=== PATIENT | female | born 1960 | race Caucasian/White ===

== ENCOUNTER → 2018-08-29 | Outpatient (CLI) | payer MEDICARE ==
[~2018-08-29] MED LIST: ALB18R INH; CALC625T64 PO; DULO30CA35 PO; HYDR12.556 PO; LAMO100T5 PO; QUET25TA PO; TRAZ100T31 PO
[2018-08-29 11:45] LABS: PLATELET COUNT, AUTOMATED 361 K/uL (150-450)
[2018-08-29 12:18] LABS: LDL CHOLESTEROL 153 mg/dl
== END ==
LOC: LAB 11:27
PROVIDERS: ATTEND Internal Medicine
DX: I10 Essential (primary) hypertension (principal); M54.9 Dorsalgia, unspecified
CPT/HCPCS: 82040; 82247; 82310; 82374; 82435; 82465; 82565; 82947; 83718; 84075; 84132; 84155; 84295; 84443; 84450; 84460; 84478; 84520; 84550; 85025

== ENCOUNTER 2018-09-05 11:49 | Emergency (ER) | payer MEDICARE ==
--- NOTE | 2018-09-05 12:17 | ER Report ---
History and Physical Time Seen By MD: 12:17 Hx. of Stated Complaint: Pt. having cough for at least 6 months, and nasal congestion. She has tried everyting over the counter, nothing is helping. Dry cough with SOB. No fevers. HPI/ROS CHIEF COMPLAINT: Cough HISTORY OF PRESENT ILLNESS: 58-year-old female patient presents to emergency room with complaint of a cough. Patient states that she has had this cough for the past several months. She states she's not had any fevers or chills. She states she has been having significant amounts of sinus congestion over that time. She states that often times she is unable to breathe through her nose because the congestion. Patient has not had any nausea or vomiting. Patient states that often times when she coughs she will have urinary leakage. Patient states she's tried [id number]-[id number] cough and cold medication with no improvement. She has been taking a nasal spray that she purchased at the [employer] which helps considerably with the congestion. REVIEW OF SYSTEMS: Respiratory: As noted above Cardiovascular: No chest pain, no palpitations. Gastrointestinal: No vomiting, no abdominal pain. Musculoskeletal: No back pain. Allergies: Uncoded Allergies: sulfa (Allergy, Intermediate, face swelling, 09/05/18) Home Meds Active Scripts Amoxicillin/Pot Clav 875-125 Mg Tab (AUGMENTIN 875-125 TABLET) 1 Each Tablet, 1 TAB PO Q12H, #28 TAB Prov:CHECO TAYLOR SHIRT BANDER 09/05/18 Reported Medications Albuterol Sulfate (VENTOLIN HFA) 18 Gm Inh, 2 PUFF INH Q4-6H PRN for SHORTNESS OF BREATH, INH 08/17/18 Calcium Polycarbophil (FIBER LAX) 625 Mg Tablet, 2 TAB PO QDAY 08/17/18 Trazodone Hcl (TRAZODONE HCL) 100 Mg Tablet, 200 MG PO QHS, TAB 08/17/18 Hydrochlorothiazide (HYDROCHLOROTHIAZIDE) 12.5 Mg Capsule, 1 TAB PO QDAY, CAPSULE 08/17/18 Quetiapine Fumarate (QUETIAPINE FUMARATE) 25 Mg Tablet, 25 MG PO BID 08/17/18 Lamotrigine (LAMOTRIGINE) 100 Mg Tab.er.24, 100 MG PO QDAY 08/17/18 Duloxetine Hcl (CYMBALTA) 30 Mg Capsule.dr, 30 MG PO QDAY, CAP 08/17/18 Past Medical/Surgical History Patient has a past medical history of hypertension, urinary leakage, back pain, occasional alcohol use, bipolar. Patient has surgical history of tubal ligation, tonsillectomy. Reviewed Nurses Notes: Yes Hx Smoking: Yes Smoking Status: Current: Every Day Smoker Exposure to Second Hand Smoke?: Yes Hx Substance Use Disorder: Yes Hx Alcohol Use: Yes (occasional) Constitutional Vital Sign - Last 24 Hours 09/05/18 09/05/18 09/05/18 09/05/18 12:00 12:04 12:09 12:39 Temp 97.7 Pulse 94 92 ??? Resp 16 B/P (MAP) 152/85 152/85 (107) Pulse Ox 96 93 O2 Delivery Room Air 09/05/18 09/05/18 13:00 13:09 Pulse ??? B/P (MAP) ???/??? (1665) Physical Exam General Appearance: The patient is alert, has no immediate need for airway protection and no current signs of toxicity. ENT: Tympanic membranes are pearly-garcia, auditory canals are patent, mucous membranes are moist. Patient does have swelling to bilateral nares. Respiratory: Chest is non tender, lungs are clear to auscultation. Cardiac: regular rate and rhythm Gastrointestinal: Abdomen is soft and non tender, no masses, bowel sounds normal. Musculoskeletal: Neck: Neck is supple and non tender. Extremities have full range of motion and are non tender. Skin: No rashes or lesions. DIFFERENTIAL DIAGNOSIS: After history and physical exam differential diagnosis was considered for bronchitis, pneumonia, sinusitis, upper respiratory infection. Medical Decision Making EKG/Imaging Imaging 2 VIEWS CHEST INDICATION: And congestion. History smoking. COMPARISON: None available FINDINGS: Cardiomediastinal silhouette and pulmonary vessels within normal limits. There is no focal infiltrate or lobar consolidation. There is no pneumothorax or pleural effusion. There is a ill-defined nodular opacity seen along the medial right apex. Upper abdomen is unremarkable. No acute bony abnormality. IMPRESSION: 1. No acute cardiopulmonary process. 2. Nodular opacity along the medial right apex. This is fairly dense and could represent overlapping bony structures, but indeterminate. Suggest a follow-up apical lordotic view the chest to evaluate whether there is underlying pa renchymal abnormality. Report Dictated By: Catrachito Carbone at 09/05/2018 1:02 PM Report E-Signed By: Catrachito Carbone at 09/05/2018 1:04 PM ED Course/Re-evaluation ED Course Patient was admitted to an exam room, history and physical were obtained. Differential diagnoses were considered. On examination lungs are clear, heart is regular, abdomen soft nontender. I did look at the mucous membranes of the nose she has significant swelling, especially to the left. Looking at the posterior pharynx she did have some cobblestoning. A chest x-ray was done. Chest x-ray showed no acute cardiopulmonary processes. There was mention of a radiodense lesion in the medial aspect of the apex of the right lung. I discussed the findings with the patient and her . I discussed that it wouldn't be a bad idea to go ahead and get a CT scan of the chest done have a better look at it. Patient refused at this time stating she would prefer to go ahead and follow-up with her primary care provider, who she has an appointment with on Tuesday. She states she is very tired and would prefer just to go home at this time. We'll go ahead and discharge patient home at this time. With the swelling to the mucous membranes of believe that she has a sinus infection. We'll go ahead and treat her with a two-week course of Augmentin. Patient is to stop taking the Afrin nasal spray which she has been taking. She may use an emdk-naa-tygkmay decongestant such as Sudafed in the meantime. Patient verbalized understanding and agreement with plan. Decision to Disposition Date: Sep 05, 2018 Decision to Disposition Time: 13:22 Depart Departure Latest Vital Signs Vital Signs Date Time Temp Pulse Resp B/P (MAP) Pulse Ox O2 Delivery O2 Flow Rate FiO2 09/05/18 13:09 ??? 09/05/18 13:00 ???/??? (1665) 09/05/18 12:09 93 09/05/18 12:00 97.7 16 Room Air Impression: Primary Impression: Cough Additional Impression: Sinusitis Condition: Improved Disposition: HOME OR SELF-CARE Referrals: MARIA ELENA LEWIS MD (PCP) New Scripts Amoxicillin/Pot Clav 875-125 Mg Tab (AUGMENTIN 875-125 TABLET) 1 Each Tablet 1 TAB PO Q12H, #28 TAB Prov: CHECO TAYLOR 09/05/18 Patient Instructions: Sinusitis (ED) Additional Instructions: Increase fluid intake. Get plenty of rest. Return to the ER if condition worsens. Take the medication as prescribed. Stop taking the Nasal spray. You may take Over the counter sudafed to help with congestion. Follow up with Dr. Sheridan on Tuesday as scheduled. Problem Qualifiers Additional Impression: Sinusitis Sinusitis location: maxillary Chronicity: chronic Qualified Codes: J32.0 - Chronic maxillary sinusitis CHECO TAYLOR Sep 05, 2018 12:17
--- NOTE | 2018-09-05 13:09 | RADIOLOGY IMAGING REPORT ---
FACILITY: [facility] [place] PATIENT NAME: Sweta Green : 1960 MR: [id number] V: [id number] EXAM DATE: ORDERING PHYSICIAN: CHECO TAYLOR TECHNOLOGIST: Location: [facility] Patient: Sweta Green : 1960 Visit/Account:[id number] Date of Sevice: 09/05/2018 2 VIEWS CHEST INDICATION: And congestion. History smoking. COMPARISON: None available FINDINGS: Cardiomediastinal silhouette and pulmonary vessels within normal limits. There is no focal infiltrate or lobar consolidation. There is no pneumothorax or pleural effusion. There is a ill-defined nodular opacity seen along the medial right apex. Upper abdomen is unremarkable. No acute bony abnormality. IMPRESSION: 1. No acute cardiopulmonary process. 2. Nodular opacity along the medial right apex. This is fairly dense and could represent overlapping bony structures, but indeterminate. Suggest a follow-up apical lordotic view the chest to evaluate wh ether there is underlying parenchymal abnormality. Report Dictated By: Catrachito Carbone at 09/05/2018 1:02 PM Report E-Signed By: Catrachito Carbone at 09/05/2018 1:04 PM WSN:[id number]
[2018-09-05] MEDS ORDERED: AMOX-559 PO (13:24)
== END 2018-09-05 13:33 | disposition home or self-care (01) ==
LOC: ER 12:07
DX: J32.0 Chronic maxillary sinusitis (principal)
CPT/HCPCS: 71046; 99283

== ENCOUNTER → 2018-09-15 | Outpatient (CLI) | payer MEDICARE ==
[~2018-09-15] MED LIST changes: +AMOX-559 PO; +ATOR20TA65 PO
--- NOTE | 2018-09-15 12:18 | RADIOLOGY IMAGING REPORT ---
FACILITY: [facility] PATIENT NAME: Sweta Green : 1960 MR: [id number] V: [id number] EXAM DATE: ORDERING PHYSICIAN: MARIA ELENA LEWIS TECHNOLOGIST: Location: [facility] [place] Patient: Sweta Green : 1960 Visit/Account:[id number] Date of Sevice: 09/15/2018 Chest with lateral, two views. HISTORY: Chest x-ray abnormality. COMPARISON: 09/05/2018. A vague nodular density projects on the medial aspect of the right lung apex, unchanged. The heart a nd mediastinum are unremarkable. Pulmonary vessels are unremarkable. The lungs are otherwise clear. The pleural surfaces are otherwise unremarkable. No pneumothorax. No acute bony abnormalities. IMPRESSION: Persistent right upper chest opacity. A lung nodule, or focal bony hypertrophy, are possible. A jared CT scan might be considered for further evaluation. Otherwise no evidence of acute cardiopulmonary disease. Report Dictated By: Patrick Frost MD at 09/15/2018 12:11 PM Report E-Signed By: Patrick Frost MD at 09/15/2018 12:14 PM WSN:[email or web address]
== END ==
LOC: RAD 11:30
PROVIDERS: ATTEND Internal Medicine
DX: R93.89 Abnormal findings on diagnostic imaging of other specified body structures (principal)
CPT/HCPCS: 71047

== ENCOUNTER → 2018-09-21 | Outpatient (CLI) | payer MEDICARE ==
[~2018-09-21] MED LIST changes: +IOPAMIDOL 61% 75 ML INFUS BTL 75 ML ONE
== END ==
LOC: CT 14:30
PROVIDERS: ATTEND Internal Medicine
DX: R93.89 Abnormal findings on diagnostic imaging of other specified body structures (principal); R06.00 Dyspnea, unspecified; R06.89 Other abnormalities of breathing
CPT/HCPCS: Q9967

== ENCOUNTER → 2018-10-19 | Outpatient (CLI) | payer MEDICARE ==
[~2018-10-19] MED LIST changes: +ALBU8.5H IH; +FLUT16SP19 NS; -IOPAMIDOL 61% 75 ML INFUS BTL 75 ML ONE; +PRED20TA6 PO
== END ==
LOC: RESP 07:13
PROVIDERS: ATTEND Internal Medicine
DX: R06.00 Dyspnea, unspecified (principal); I10 Essential (primary) hypertension; Z72.0 Tobacco use
CPT/HCPCS: 94060; 94726; 94729

== ENCOUNTER 2018-10-23 10:20 | Emergency (ER) | payer MEDICARE ==
[~2018-10-23 10:20] MED LIST changes: -ALBU8.5H IH
--- NOTE | 2018-10-23 10:38 | ER Report ---
History and Physical Time Seen By MD: 10:38 Hx. of Stated Complaint: pt reports R sided chest pain since tuesday after pulm function test. denies sob, dizziness or other s/s HPI/ROS CHIEF COMPLAINT: Chest pain HISTORY OF PRESENT ILLNESS: Patient is a 58-year-old female who was being followed by Dr. Fox for some chest discomfort and cough for the past few weeks. She recently had pulmonary function test done on Tuesday and since then has had increasing chest pain or pressure. She denies any exertional component. She is a pack-a-day smoker for the past 40+ years. She denies any fevers or chills she denies any flulike symptoms. She denies any abdominal pain she denies nausea vomiting or diarrhea. REVIEW OF SYSTEMS: Constitutional: No fever, no chills. Eyes: No discharge. ENT: No sore throat. Cardiovascular: Chest pain Respiratory: Dry cough Gastrointestinal: No abdominal pain, no vomiting. Genitourinary: No hematuria. Musculoskeletal: No back pain. Skin: No rashes. Neurological: No headache. Allergies: Uncoded Allergies: sulfa (Allergy, Intermediate, face swelling, 09/05/18) Home Meds Active Scripts Prednisone (PREDNISONE) 20 Mg Tablet, 60 MG PO QDAY, #15 TAB 0 Refills Prov:JEROME CASTILLO MD 10/23/18 Albuterol Sulfate 90 Mcg/Act (PROAIR HFA 90 MCG/ACT) 8.5 Gm Hfa.aer.ad, 1-2 PUFF IH 3-4XD for cough, #1 INHALER 1 Refill Prov:JEROME CASTILLO MD 10/23/18 Fluticasone Prop 50 Mcg Ns (FLONASE 50 MCG NS) 16 Gm [place].susp, 2 SPRAYS NS QDAY, #1 BOT 2 Refills Prov:MARIA ELENA FOX MD 10/10/18 Prednisone (PREDNISONE) 20 Mg Tablet, 20 MG PO BID, #14 TAB Prov:MARIA ELENA FOX MD 10/10/18 Atorvastatin Calcium (ATORVASTATIN CALCIUM) 20 Mg Tablet, 1 TAB PO QDAY, #30 TAB 3 Refills Prov:MARIA ELENA FOX MD 09/15/18 Reported Medications Albuterol Sulfate (VENTOLIN HFA) 18 Gm Inh, 2 PUFF INH Q4-6H PRN for SHORTNESS OF BREATH, INH 08/17/18 Calcium Polycarbophil (FIBER LAX) 625 Mg Tablet, 2 TAB PO QDAY 08/17/18 Trazodone Hcl (TRAZODONE HCL) 100 Mg Tablet, 200 MG PO QHS, TAB 08/17/18 Hydrochlorothiazide (HYDROCHLOROTHIAZIDE) 12.5 Mg Capsule, 1 TAB PO QDAY, CAPSULE 08/17/18 Quetiapine Fumarate (QUETIAPINE FUMARATE) 25 Mg Tablet, 25 MG PO BID 08/17/18 Lamotrigine (LAMOTRIGINE) 100 Mg Tab.er.24, 100 MG PO QDAY 08/17/18 Duloxetine Hcl (CYMBALTA) 30 Mg Capsule.dr, 30 MG PO QDAY, CAP 08/17/18 Past Medical/Surgical History Past medical history for smoking, reactive airways disease. Hx Smoking: Yes Smoking Status: Current: Every Day Smoker Exposure to Second Hand Smoke?: Yes Hx Substance Use Disorder: Yes Hx Alcohol Use: Yes (occasional) Constitutional Vital Sign - Last 24 Hours 10/23/18 10/23/18 10/23/18 10:20 11:27 11:27 Temp 97.4 Pulse 86 75 Resp 18 18 B/P (MAP) 169/94 Pulse Ox 91 92 O2 Delivery Room Air Room Air Physical Exam General/Constitutional: Patient is awake, alert, nontoxic and in no acute respiratory distress. Head: Normocephalic and atraumatic. Ears:External canals are clear. Tympanic membranes are clear with normal landmarks and light reflex. Nares: No rhinorrhea or bleeding. Turbinates are pink and moist. Oropharyngeal: Mucous membranes are moist. There is no pharyngeal erythema or exudate. There are no palatal petechiae. Uvula is midline and symmetrical. Neck: Supple, no adenopathy. Cardiovascular: Heart is regular rate and rhythm without audible murmurs, rubs or gallops. Pulmonary: Lungs are noted for wheezing with cough. Abdomen: Soft, nontender, no guarding or peritoneal signs. Extremities: No gross deformities, No peripheral cyanosis. Able to move all 4 extremities. Neuro: Alert and oriented X3, Skin: No rashes, skin is warm dry and well perfused. Medical Decision Making Data Points Result Diagram: 10/23/18 1027 10/23/18 1027 Laboratory Hematology Test 10/23/18 10:27 Red Blood Count 4.44 M/uL (4.17-5.56) Mean Corpuscular Volume 103.6 fL (80.0-96.0) Mean Corpuscular Hemoglobin 35.5 pg (26.0-33.0) Mean Corpuscular Hemoglobin Concent 34.3 g/dL (32.0-36.0) Red Cell Distribution Width 13.6 % (11.5-14.5) Mean Platelet Volume 8.0 fL (7.2-11.1) Neutrophils (%) (Auto) 75.3 % (39.4-72.5) Lymphocytes (%) (Auto) 16.1 % (17.6-49.6) Monocytes (%) (Auto) 7.0 % (4.1-12.4) Eosinophils (%) (Auto) 0.9 % (0.4-6.7) Basophils (%) (Auto) 0.7 % (0.3-1.4) Nucleated RBC Relative Count (auto) 0.0 /100WBC Neutrophils # (Auto) 8.2 K/uL (2.0-7.4) Lymphocytes # (Auto) 1.8 K/uL (1.3-3.6) Monocytes # (Auto) 0.8 K/uL (0.3-1.0) Eosinophils # (Auto) 0.1 K/uL (0.0-0.5) Basophils # (Auto) 0.1 K/uL (0.0-0.1) Nucleated RBC Absolute Count (auto) 0.00 K/uL Prothrombin Time 12.7 seconds (12.0-14.4) Prothromb Time International Ratio 0.95 Activated Partial Thromboplast Time 30 seconds (23-35) Sodium Level 142 mmol/L (137-145) Potassium Level 3.4 mmol/L (3.5-5.0) Chloride Level 110 mmol/L (98-107) Carbon Dioxide Level 24 mmol/L (22-31) Blood Urea Nitrogen 11 mg/dl (7-18) Creatinine 0.50 mg/dl (0.52-1.04) Glomerular Filtration Rate Calc > 60.0 Random Glucose 119 mg/dl (75-110) Calcium Level 8.7 mg/dl (8.4-10.2) Total Bilirubin 0.3 mg/dl (0.2-1.3) Aspartate Amino Transf (AST/SGOT) 37 U/L (0-35) Alanine Aminotransferase (ALT/SGPT) 40 U/L (0-56) Alkaline Phosphatase 88 U/L (0-126) Troponin I < 0.012 ng/ml B-Type Natriuretic Peptide 15 pg/ml (0-100) Total Protein 6.2 g/dl (6.3-8.2) Albumin 3.8 g/dl (3.5-5.0) Chemistry Test 10/23/18 10:27 White Blood Count 10.9 k/uL (4.5-11.0) Red Blood Count 4.44 M/uL (4.17-5.56) Hemoglobin 15.8 g/dL (12.0-16.0) Hematocrit 46.0 % (34.0-47.0) Mean Corpuscular Volume 103.6 fL (80.0-96.0) Mean Corpuscular Hemoglobin 35.5 pg (26.0-33.0) Mean Corpuscular Hemoglobin Concent 34.3 g/dL (32.0-36.0) Red Cell Distribution Width 13.6 % (11.5-14.5) Platelet Count 300 K/uL (150-450) Mean Platelet Volume 8.0 fL (7.2-11.1) Neutrophils (%) (Auto) 75.3 % (39.4-72.5) Lymphocytes (%) (Auto) 16.1 % (17.6-49.6) Monocytes (%) (Auto) 7.0 % (4.1-12.4) Eosinophils (%) (Auto) 0.9 % (0.4-6.7) Basophils (%) (Auto) 0.7 % (0.3-1.4) Nucleated RBC Relative Count (auto) 0.0 /100WBC Neutrophils # (Auto) 8.2 K/uL (2.0-7.4) Lymphocytes # (Auto) 1.8 K/uL (1.3-3.6) Monocytes # (Auto) 0.8 K/uL (0.3-1.0) Eosinophils # (Auto) 0.1 K/uL (0.0-0.5) Basophils # (Auto) 0.1 K/uL (0.0-0.1) Nucleated RBC Absolute Count (auto) 0.00 K/uL Prothrombin Time 12.7 seconds (12.0-14.4) Prothromb Time International Ratio 0.95 Activated Partial Thromboplast Time 30 seconds (23-35) Glomerular Filtration Rate Calc > 60.0 Calcium Level 8.7 mg/dl (8.4-10.2) Total Bilirubin 0.3 mg/dl (0.2-1.3) Aspartate Amino Transf (AST/SGOT) 37 U/L (0-35) Alanine Aminotransferase (ALT/SGPT) 40 U/L (0-56) Alkaline Phosphatase 88 U/L (0-126) Troponin I < 0.012 ng/ml B-Type Natriuretic Peptide 15 pg/ml (0-100) Total Protein 6.2 g/dl (6.3-8.2) Albumin 3.8 g/dl (3.5-5.0) Coagulation Test 10/23/18 10:27 Prothrombin Time 12.7 seconds Prothromb Time International Ratio 0.95 Activated Partial Thromboplast Time 30 seconds EKG/Imaging EKG Interpretation EKG shows normal sinus rhythm with low voltage septal infarct age indeterminate. Monitor Interpretation: Normal Sinus Rhythm Imaging FACILITY: [facility] PATIENT NAME: Sweta Green : 1960 MR: [id number] V: [id number] EXAM DATE: ORDERING PHYSICIAN: JEROME CASTILLO TECHNOLOGIST: Location: [facility] Patient: Sweta Green : 1960 Visit/Account:[id number] Date of Sevice: 10/23/2018 2 VIEWS CHEST INDICATION: Chest pain. COMPARISON: September 15, 2018 FINDINGS: Platelike atelectasis is seen in the left midlung. No effusion or pneumothorax is seen. Heart size and mediastinal contours are normal. Mild degenerative changes involve the midthoracic spine. On the frontal view, oval-shaped opacity overlies the left axilla. This is likely projectional. No abnormality was seen in the axilla on the recent CT scan. IMPRESSION: 1. No radiographic evidence of active disease. 2. Platelike atelectasis in the left midlung. Report Dictated By: Pro Eaton at 10/23/2018 12:08 PM Report E-Signed By: Pro Eaton at 10/23/2018 12:13 PM WSN:[email or web address] ED Course/Re-evaluation ED Course Patient was improvement after DuoNeb. Plan at this time will be to place the patient on an inhaler as well as oral steroids have her follow up Dr. Fox next Tuesday. Decision to Disposition Date: Oct 23, 2018 Decision to Disposition Time: 12:27 Depart Departure Latest Vital Signs Vital Signs Date Time Temp Pulse Resp B/P (MAP) Pulse Ox O2 Delivery O2 Flow Rate FiO2 10/23/18 11:27 92 Room Air 10/23/18 11:27 75 18 10/23/18 10:20 97.4 169/94 Impression: Primary Impression: Bronchospasm Condition: Improved Disposition: HOME OR SELF-CARE Referrals: MARIA ELENA FOX MD (PCP) New Scripts Prednisone (PREDNISONE) 20 Mg Tablet 60 MG PO QDAY, #15 TAB 0 Refills Prov: JEROME CASTILLO MD 10/23/18 Albuterol Sulfate 90 Mcg/Act (PROAIR HFA 90 MCG/ACT) 8.5 Gm Hfa.aer.ad 1-2 PUFF IH 3-4XD for cough, #1 INHALER 1 Refill Prov: JEROME CASTILLO MD 10/23/18 Patient Instructions: Bronchospasm (ED) JEROME CASTILLO MD Oct 23, 2018 10:38
[2018-10-23] MEDS ORDERED: ASPIRIN 81 MG CHEW PO ONE (11:15)
[2018-10-23] MEDS ORDERED: ALBUTEROL/IPRATROPIUM 3 ML NEB NEB ONE (11:15)
[2018-10-23 11:20] LABS: PLATELET COUNT, AUTOMATED 300 K/uL (150-450)
[2018-10-23 11:29] LABS: INR 0.95
--- NOTE | 2018-10-23 12:18 | RADIOLOGY IMAGING REPORT ---
FACILITY: [facility] [place] PATIENT NAME: Sweta Green : 1960 MR: [id number] V: [id number] EXAM DATE: ORDERING PHYSICIAN: JEROME CASTILLO TECHNOLOGIST: Location: [facility] Patient: Sweta Green : 1960 Visit/Account:[id number] Date of Sevice: 10/23/2018 2 VIEWS CHEST INDICATION: Chest pain. COMPARISON: September 15, 2018 FINDINGS: Platelike atelectasis is seen in the left midlung. No effusion or pneumothorax is seen. Heart size a nd mediastinal contours are normal. Mild degenerative changes involve the midthoracic spine. On the frontal view, oval-shaped opacity overlies the left axilla. This is likely projectional. No abnorm ality was seen in the axilla on the recent CT scan. IMPRESSION: 1. No radiographic evidence of active disease. 2. Platelike atelectasis in the left midlung. Report Dictated By: Pro Eaton at 10/23/2018 12:08 PM Report E-Signed By: Pro Eaton at 10/23/2018 12:13 PM WSN:[email or web address]
--- NOTE | 2018-10-23 12:24 | EKG ---
FACILITY: [facility] PATIENT NAME: BRIAN ARAUJO : [id number] MR: [id number] V: [id number] EXAM DATE: ORDERING PHYSICIAN: JEROME CASTILLO TECHNOLOGIST: ANAI Silvestre Reason : CP Blood Pressure : / mmHG Vent. Rate : 085 BPM Atrial Rate : 085 BPM P-R Int : 174 ms QRS Dur : 082 ms QT Int : 396 ms P-R-T Axes : 052 -18 045 degrees QTc Int : 471 ms Normal sinus rhythm Low voltage QRS Septal infarct , age undetermined Abnormal ECG No previous ECGs available Confirmed by CARTER PHILLIPS ([id number]) on 10/23/2018 7:23:14 PM Referred By: JONATHAN Confirmed By:CARTER PHILLIPS
[2018-10-23] MEDS ORDERED: ALBU8.5H IH (12:29)
[2018-10-23] MEDS ORDERED: PRED20TA6 PO (12:29)
[2018-10-23] MEDS ORDERED: ALBUTEROL 8 GM INHALER INH ONE (12:30)
[2018-10-23 12:51] VITALS: BP 155/82
[2018-10-24] MEDS ORDERED: ALB18R INH (14:13)
[2018-10-25] MEDS ORDERED: LISI-351 PO (10:55)
[2018-10-25] MEDS ORDERED: FLUT1DIS27 IH (10:55)
[2018-10-25] MEDS ORDERED: VARE1TAB3 PO (10:55)
[2018-10-25] MEDS ORDERED: VAR05PT PO (10:55)
== END 2018-10-23 12:50 | disposition home or self-care (01) ==
LOC: ER 10:43
DX: J98.01 Acute bronchospasm (principal)
CPT/HCPCS: 71046; 83880; 84484; 85025; 85610; 85730; 93005; 94640; 99284; A9270; J7620; 82040; 82247; 82310; 82374; 82435; 82565; 82947; 84075; 84132; 84155; 84295; 84450; 84460; 84520

== ENCOUNTER 2018-12-17 12:15 | Emergency (ER) | payer MEDICARE ==
[~2018-12-17 12:15] MED LIST changes: +ALBU8.5H IH; +FLUT1DIS27 IH; +LISI-351 PO; +VAR05PT PO; +VARE1TAB3 PO
--- NOTE | 2018-12-17 12:20 | ER Report ---
History and Physical Time Seen By MD: 12:20 HPI/ROS CHIEF COMPLAINT: Right-sided chest pain HISTORY OF PRESENT ILLNESS: Patient is a 58-year-old female who is a moderate to heavy smoker who presents to emergency department complaining of pleuritic right-sided chest pain. This is been a recurring problem for the patient. She wa s seen by myself back in September with similar symptoms had a negative cardiac workup at that time and was diagnosed with pleurisy and bronchospasm. Patient has sepsis with a follow-up and then pulmonary function testing which revealed a mild component of COPD. She states the chest pain has been present for the past 4-5 days and feels like someone is pushing on the right side of her chest near the apex. She also notes over the past few months a droopy right eyelid. States that he just feels as if the "muscle doesn't want to work". She denies any headache she denies neck pain. She denies any abdominal pain or nausea vomiting or diarrhea. She denies fevers or chills. REVIEW OF SYSTEMS: Constitutional: No fever, no chills. Eyes: No discharge. Right-sided eyelid drop ENT: No sore throat. Cardiovascular: Right-sided chest pain Respiratory: No cough, no shortness of breath. Gastrointestinal: No abdominal pain, no vomiting. Genitourinary: No hematuria. Musculoskeletal: No back pain. Skin: No rashes. Neurological: No headache. Allergies: Uncoded Allergies: sulfa (Allergy, Intermediate, face swelling, 09/05/18) Home Meds Active Scripts Potassium Chloride (KLOR-CON 10) 10 Meq Tablet.er, 10 MEQ PO QODAY, #30 TAB 3 Refills Prov:MARIA ELENA LEWIS MD 12/21/18 Fluticasone/Vilanterol (Breo Ellipta 200-25 Mcg INH) 1 Each Blst.w.dev, 1 PUFF INH QDAY, #1 INHALER 3 Refills Prov:MARIA ELENA LEWIS MD 12/21/18 Albuterol Sulfate 0.083% (ALBUTEROL SULFATE 0.083%) 2.5 Mg/3 Ml Vial.neb, 2.5 MG INH Q6H for cough, #1 BOX 1 Refill Prov:JEROME CASTILLO MD 12/17/18 Lisinopril/Hydrochlorothiazide (LISINOPRIL-HCTZ 10-12.5 MG TAB) 1 Each Tablet, 1 EACH PO QDAY, #30 TAB 3 Refills Prov:MARIA ELENA LEWIS MD 10/25/18 Albuterol Sulfate (VENTOLIN HFA) 18 Gm Inh, 2 PUFF INH Q4-6H PRN for SHORTNESS OF BREATH for 90 Days, #1 INH 4 Refills Prov:MARIA ELENA LEWIS MD 10/24/18 Fluticasone Prop 50 Mcg Ns (FLONASE 50 MCG NS) 16 Gm [place].susp, 2 SPRAYS NS QDAY, #1 BOT 2 Refills Prov:MARIA ELENA LEWIS MD 10/10/18 Atorvastatin Calcium (ATORVASTATIN CALCIUM) 20 Mg Tablet, 1 TAB PO QDAY, #30 TAB 3 Refills Prov:MARIA ELENA LEWIS MD 09/15/18 Reported Medications Calcium Polycarbophil (FIBER LAX) 625 Mg Tablet, 2 TAB PO QDAY 08/17/18 Trazodone Hcl (TRAZODONE HCL) 100 Mg Tablet, 200 MG PO QHS, TAB 08/17/18 Discontinued Scripts Fluticasone/Salmeterol (ADVAIR 100-50 DISKUS) 1 Each Disk.w.dev, 1 EACH IH BID, #1 INH 3 Refills Prov:MARIA ELENA LEWIS MD 10/25/18 Prednisone (PREDNISONE) 20 Mg Tablet, 60 MG PO QDAY, #15 TAB 0 Refills Prov:JEROME CASTILLO MD 10/23/18 Varenicline Tartrate (CHANTIX) 1 Each Tab.ds.pk, 1 EACH PO QDAY, #60 TAB 3 Refills Prov:MARIA ELENA LEWIS MD 10/25/18 Varenicline Tartrate (CHANTIX) 0.5 Mg Tab, 0.5 MG PO use as directed, #60 TAB 0.5 mg x once a day x 3 days 0.5 mg BID x 4 days than 1 mg BID Prov:MARIA ELENA LEWIS MD 10/25/18 Past Medical/Surgical History Past medical history for hypertension, anxiety, mild COPD, hypercholesterolemia, history of tonsillectomy, tubal ligation and arthroscopically of both knees. Hx Smoking: Yes Smoking Status: Current: Every Day Smoker Exposure to Second Hand Smoke?: Yes Hx Substance Use Disorder: Yes Hx Alcohol Use: Yes (occasional) Constitutional Physical Exam General/Constitutional: Patient is awake, alert, nontoxic and in no acute respiratory distress. Head: Normocephalic and atraumatic. Eyes: Conjunctival clear, Pupils are equal and reactive to light. Extraocular muscles are intact and symmetrical. Sclera are clear and anicteric. Patient has notable ptosis on the right eyelid Ears:External canals are clear. Tympanic membranes are clear with normal landmarks and light reflex. Nares: No rhinorrhea or bleeding. Turbinates are pink and moist. Oropharyngeal: Mucous membranes are moist. There is no pharyngeal erythema or exudate. There are no palatal petechiae. Uvula is midline and symmetrical. Neck: Supple, no adenopathy. Cardiovascular: Heart is regular rate and rhythm without audible murmurs, rubs or gallops. Pulmonary: Lungs are noted for wheezing at end expiration and prolonged expiratory phase. Abdomen: Soft, nontender, no guarding or peritoneal signs. Extremities: No gross deformities, No peripheral cyanosis. Able to move all 4 extremities. Neuro: Alert and oriented X3, patient with ptosis extraocular muscles are intact and symmetrical. Pupils size appears similar and reactive to light Skin: No rashes, skin is warm dry and well perfused. Medical Decision Making Data Points Laboratory Hematology Test 12/17/18 12:25 Red Blood Count 5.01 M/uL (4.17-5.56) Mean Corpuscular Volume 103.1 fL (80.0-96.0) Mean Corpuscular Hemoglobin 35.3 pg (26.0-33.0) Mean Corpuscular Hemoglobin Concent 34.2 g/dL (32.0-36.0) Red Cell Distribution Width 12.8 % (11.5-14.5) Mean Platelet Volume 8.0 fL (7.2-11.1) Neutrophils (%) (Auto) 78.1 % (39.4-72.5) Lymphocytes (%) (Auto) 14.4 % (17.6-49.6) Monocytes (%) (Auto) 6.4 % (4.1-12.4) Eosinophils (%) (Auto) 0.8 % (0.4-6.7) Basophils (%) (Auto) 0.3 % (0.3-1.4) Nucleated RBC Relative Count (auto) 0.1 /100WBC Neutrophils # (Auto) 9.6 K/uL (2.0-7.4) Lymphocytes # (Auto) 1.8 K/uL (1.3-3.6) Monocytes # (Auto) 0.8 K/uL (0.3-1.0) Eosinophils # (Auto) 0.1 K/uL (0.0-0.5) Basophils # (Auto) 0.0 K/uL (0.0-0.1) Nucleated RBC Absolute Count (auto) 0.01 K/uL Prothrombin Time 12.3 seconds (12.0-14.4) Prothromb Time International Ratio 0.92 Activated Partial Thromboplast Time 33 seconds (23-35) Sodium Level 141 mmol/L (137-145) Potassium Level 3.1 mmol/L (3.5-5.0) Chloride Level 106 mmol/L (98-107) Carbon Dioxide Level 27 mmol/L (22-31) Blood Urea Nitrogen 11 mg/dl (7-18) Creatinine 0.70 mg/dl (0.52-1.04) Glomerular Filtration Rate Calc > 60.0 Random Glucose 109 mg/dl (75-110) Calcium Level 9.6 mg/dl (8.4-10.2) Total Bilirubin 0.6 mg/dl (0.2-1.3) Aspartate Amino Transf (AST/SGOT) 45 U/L (0-35) Alanine Aminotransferase (ALT/SGPT) 36 U/L (0-56) Alkaline Phosphatase 101 U/L (0-126) Troponin I < 0.012 ng/ml B-Type Natriuretic Peptide 6 pg/ml (0-100) Total Protein 7.3 g/dl (6.3-8.2) Albumin 4.2 g/dl (3.5-5.0) Chemistry Test 12/17/18 12:25 White Blood Count 12.3 k/uL (4.5-11.0) Red Blood Count 5.01 M/uL (4.17-5.56) Hemoglobin 17.7 g/dL (12.0-16.0) Hematocrit 51.6 % (34.0-47.0) Mean Corpuscular Volume 103.1 fL (80.0-96.0) Mean Corpuscular Hemoglobin 35.3 pg (26.0-33.0) Mean Corpuscular Hemoglobin Concent 34.2 g/dL (32.0-36.0) Red Cell Distribution Width 12.8 % (11.5-14.5) Platelet Count 349 K/uL (150-450) Mean Platelet Volume 8.0 fL (7.2-11.1) Neutrophils (%) (Auto) 78.1 % (39.4-72.5) Lymphocytes (%) (Auto) 14.4 % (17.6-49.6) Monocytes (%) (Auto) 6.4 % (4.1-12.4) Eosinophils (%) (Auto) 0.8 % (0.4-6.7) Basophils (%) (Auto) 0.3 % (0.3-1.4) Nucleated RBC Relative Count (auto) 0.1 /100WBC Neutrophils # (Auto) 9.6 K/uL (2.0-7.4) Lymphocytes # (Auto) 1.8 K/uL (1.3-3.6) Monocytes # (Auto) 0.8 K/uL (0.3-1.0) Eosinophils # (Auto) 0.1 K/uL (0.0-0.5) Basophils # (Auto) 0.0 K/uL (0.0-0.1) Nucleated RBC Absolute Count (auto) 0.01 K/uL Prothrombin Time 12.3 seconds (12.0-14.4) Prothromb Time International Ratio 0.92 Activated Partial Thromboplast Time 33 seconds (23-35) Glomerular Filtration Rate Calc > 60.0 Calcium Level 9.6 mg/dl (8.4-10.2) Total Bilirubin 0.6 mg/dl (0.2-1.3) Aspartate Amino Transf (AST/SGOT) 45 U/L (0-35) Alanine Aminotransferase (ALT/SGPT) 36 U/L (0-56) Alkaline Phosphatase 101 U/L (0-126) Troponin I < 0.012 ng/ml B-Type Natriuretic Peptide 6 pg/ml (0-100) Total Protein 7.3 g/dl (6.3-8.2) Albumin 4.2 g/dl (3.5-5.0) Coagulation Test 12/17/18 12:25 Prothrombin Time 12.3 seconds Prothromb Time International Ratio 0.92 Activated Partial Thromboplast Time 33 seconds EKG/Imaging EKG Interpretation EKG shows normal sinus rhythm with no significant ST segment or T-wave abn ormalities. Compared to an EKG from 10/23/2018 and was unchanged Monitor Interpretation: Normal Sinus Rhythm Imaging FACILITY: [facility] [place] PATIENT NAME: Sweta Green : 1960 MR: [id number] V: [id number] EXAM DATE: ORDERING PHYSICIAN: JEROME CASTILLO TECHNOLOGIST: Location: [facility] [place] Patient: Sweta Green : 1960 Visit/Account:[id number] Date of Sevice: 12/17/2018 CT CTA CHEST W & W/O CON HISTORY: cp TECHNIQUE: CTA chest with intravenous contrast attention to pulmonary arteries. Sagittal, coronal and slab 3D MIP coronal reconstructed images were also created for further evaluation and interpretation. One of the following dose optimization techniques was utilized in the performance of this exam: automated exposure control; adjustment of the mA and/or kV according to the patient's size; or use of an iterative reconstruction technique. Specific details can be referenced in the facility's radiology CT exam operational policy. CONTRAST: 135 cc Isovue-370 IV. There was a technical error, and the doses were split with a 60 cc dose and 75 cc dose COMPARISON: CT chest 09/21/2018 FINDINGS: Heart/vessels: There is no filling defect in either the right or left pulmonary arterial vascular tree. Lungs/pleura: The lungs are clear. There is no effusion. Mediastinum: Normal. Lymph nodes: There is no lymphadenopathy. Visualized upper abdomen: Visualized portions of the liver, spleen, adrenal glands, and pancreas are normal. Bones/soft tissues: Normal. IMPRESSION: 1. Clear lungs. 2. No pulmonary embolus. 3. Normal CT chest. Report Dictated By: Ariel Art at 12/17/2018 2:05 PM Report E-Signed By: Ariel Art at 12/17/2018 2:08 PM WSN:[id number] FACILITY: [facility] [place] PATIENT NAME: Sweta Green : 1960 MR: [id number] V: [id number] EXAM DATE: ORDERING PHYSICIAN: JEROME CASTILLO TECHNOLOGIST: Location: [facility] [place] Patient: Sweta Green : 1960 Visit/Account:[id number] Date of Sevice: 12/17/2018 EXAMINATION: CT Head without intravenous contrast HISTORY: Right-sided Heena syndrome TECHNIQUE: Axial images were obtained from the skull base to the vertex without intravenous contrast. Sagittal and coronal reformatted images are also submitted. One of the following dose optimization techniques was utilized in the performance of this exam: Automated exposure control; adjustment of the mA and/or kV according to the patient's size; or use of an iterative reconstruction technique. Specific details can be referenced in the facility's radiology CT exam operational policy. COMPARISON: 06/09/2015 FINDINGS: Brain volume: There is mild age-related volume loss present. Ventricles: Negative. Acute ischemic changes: None. Hemorrhage: None. Masses / edema: None. Agrawal-white: Negative. White matter: Negative. Vessels: Negative. Extra-axial: Negative. Calvarium / skull base: Small foreign body is seen just above the right orbit Visualized sinuses / orbits: .Reidentified are post surgical changes from reconstruction of the left superior orbit IMPRESSION: Normal noncontrast head CT. Report Dictated By: Heath Ricketts at 12/17/2018 2:02 PM Report E-Signed By: Heath Ricketts at 12/17/2018 2:05 PM WSN:[id number] ED Course/Re-evaluation ED Course Patient with complain of pretty chest pain on the right side. Recent imaging studies showed some pulmonary lung nodules that need repeat imaging. Patient is a smoker. She also noted a few weeks ago ptosis of the right eyelid. No neck pain. This would be potentially concerning for Pancoast tumor or smoking history. For this reason we will perform CT of the head noncontrast and also CT contrast study looking for lung pathology. If negative for Pancoast tumor patient will need follow-up to determine cause of eyelid droop. 12/17/2018 2:22:[address] scan of the head is unremarkable, CT scan of the chest unremarkable and no pulmonary embolism noted. We'll treat patient for pleurisy have her do breathing treatments she will also need to follow-up with Dr. Ruddy for her blood pressure medication as well as further evaluation of her eyelid droop. Decision to Disposition Date: December 17, 2018 Decision to Disposition Time: 14:23 Depart Departure Latest Vital Signs Impression: Primary Impression: Pleurisy Additional Impression: Ptosis Condition: Improved Disposition: HOME OR SELF-CARE Referrals: MARIA ELENA LEWIS MD (PCP) call to schedule a follow up appointment for recheck of your blood pressure and to follow up for your eye lid droop New Scripts Albuterol Sulfate 0.083% (ALBUTEROL SULFATE 0.083%) 2.5 Mg/3 Ml Vial.neb 2.5 MG INH Q6H for cough, #1 BOX 1 Refill Prov: JEROME CASTILLO MD 12/17/18 Patient Instructions: Pleurisy (DC) Additional Instructions: Call to schedule a follow-up appointment with your primary care provider for reevaluation of her blood pressure and also for further evaluation of your eyelid droop. Problem Qualifiers Additional Impression: Ptosis Laterality: right Qualified Codes: H02.401 - Unspecified ptosis of right eyelid JEROME CASTILLO MD December 17, 2018 12:20
[2018-12-17] MEDS ORDERED: ASPIRIN 81 MG CHEW PO ONE (12:25)
[2018-12-17 12:38] LABS: PLATELET COUNT, AUTOMATED 349 K/uL (150-450)
[2018-12-17 12:48] LABS: INR 0.92
--- NOTE | 2018-12-17 12:58 | EKG ---
[facility] PATIENT NAME: BRIAN ARAUJO : [id number] MR: [id number] V: [id number] EXAM DATE: ORDERING PHYSICIAN: JEROME CASTILLO TECHNOLOGIST: ROGELIO Test Reason : CP Blood Pressure : / mmHG Vent. Rate : 078 BPM Atrial Rate : 078 BPM P-R Int : 174 ms QRS Dur : 080 ms QT Int : 420 ms P-R-T Axes : 058 -23 059 degrees QTc Int : 478 ms Normal sinus rhythm Left axis deviation Anteroseptal infarct , age undetermined Abnormal ECG No previous ECGs available Confirmed by HORTENSIA THORNTON ([id number]) on 12/17/2018 6:41:09 PM Referred By: Confirmed By:HORTENSIA THORNTON
[2018-12-17] MEDS ORDERED: IOPAMIDOL 76% 150 ML INFUS BTL 150 ML ONE (13:44)
[2018-12-17] MEDS ORDERED: NS(*) 0.9% 50 ML BAG 50 ML ONE (13:54)
[2018-12-17] MEDS ORDERED: IOPAMIDOL 76% 100 ML INFUS BTL 100 ML ONE (13:54)
--- NOTE | 2018-12-17 14:09 | RADIOLOGY IMAGING REPORT ---
FACILITY: [facility] PATIENT NAME: Sweta Green : 1960 MR: [id number] V: [id number] EXAM DATE: ORDERING PHYSICIAN: JEROME CASTILLO TECHNOLOGIST: Location: [facility] [place] Patient: Sweta Green : 1960 Visit/Account:[id number] Date of Sevice: 12/17/2018 EXAMINATION: CT Head without intravenous contrast HISTORY: Right-sided Heena syndrome TECHNIQUE: Axial images were obtained from the skull base to the vertex without intravenous contrast . Sagittal and coronal reformatted images are also submitted. One of the following dose optimization techniques was utilized in the performance of this exam: Autom ated exposure control; adjustment of the mA and/or kV according to the patient's size; or use of an i terative reconstruction technique. Specific details can be referenced in the facility's radiology C T exam operational policy. COMPARISON: 06/09/2015 FINDINGS: Brain volume: There is mild age-related volume loss present. Ventricles: Negative. Acute ischemic changes: None. Hemorrhage: None. Masses / edema: None. Agrawal-white: Negative. White matter: Negative. Vessels: Negative. Extra-axial: Negative. Calvarium / skull base: Small foreign body is seen just above the right orbit Visualized sinuses / orbits: .Reidentified are post surgical changes from reconstruction of the left superior orbit IMPRESSION: Normal noncontrast head CT. Report Dictated By: Heath Ricketts at 12/17/2018 2:02 PM Report E-Signed By: Heath Ricketts at 12/17/2018 2:05 PM WSN:[id number]
--- NOTE | 2018-12-17 14:12 | RADIOLOGY IMAGING REPORT ---
FACILITY: [facility] [place] PATIENT NAME: Swtea Green : 1960 MR: [id number] V: [id number] EXAM DATE: ORDERING PHYSICIAN: JEROME CASTILLO TECHNOLOGIST: Location: [facility] Patient: Sweta Green : 1960 Visit/Account:[id number] Date of Sevice: 12/17/2018 CT CTA CHEST W & W/O CON HISTORY: cp TECHNIQUE: CTA chest with intravenous contrast attention to pulmonary arteries. Sagittal, coronal a nd slab 3D MIP coronal reconstructed images were also created for further evaluation and interpretati on. One of the following dose optimization techniques was utilized in the performance of this exam: a utomated exposure control; adjustment of the mA and/or kV according to the patient's size; or use of an iterative reconstruction technique. Specific details can be referenced in the facility's radiolog y CT exam operational policy. CONTRAST: 135 cc Isovue-370 IV. There was a technical error, and the doses were split with a 60 cc d ose and 75 cc dose COMPARISON: CT chest 09/21/2018 FINDINGS: Heart/vessels: There is no filling defect in either the right or left pulmonary arterial vascular tr ee. Lungs/pleura: The lungs are clear. There is no effusion. Mediastinum: Normal. Lymph nodes: There is no lymphadenopathy. Visualized upper abdomen: Visualized portions of the liver, spleen, adrenal glands, and pancreas are normal. Bones/soft tissues: Normal. IMPRESSION: 1. Clear lungs. 2. No pulmonary embolus. 3. Normal CT chest. Report Dictated By: Ariel Art at 12/17/2018 2:05 PM Report E-Signed By: Ariel Art at 12/17/2018 2:08 PM WSN:[id number]
[2018-12-17 14:18] VITALS: BP 105/90
[2018-12-17] MEDS ORDERED: ALBU2.5V36 INH (14:25)
[2018-12-21] MEDS ORDERED: FLUT1BLS3 INH (15:11)
[2018-12-21] MEDS ORDERED: POTA-23 PO (15:15)
== END 2018-12-17 14:40 | disposition home or self-care (01) ==
LOC: ER 12:39
DX: R09.1 Pleurisy (principal); H02.401 Unspecified ptosis of right eyelid; F17.210 Nicotine dependence, cigarettes, uncomplicated
CPT/HCPCS: 70450; 71275; 83880; 84484; 85025; 85610; 85730; 93005; 99284; J7050; Q9967; 82040; 82247; 82310; 82374; 82435; 82565; 82947; 84075; 84132; 84155; 84295; 84450; 84460; 84520

== ENCOUNTER → 2018-12-25 | Outpatient (REF) ==
[~2018-12-25] MED LIST changes: +ALBU2.5V36 INH; +FLUT1BLS3 INH; +POTA-23 PO
== END ==
LOC: LAB 21:22
PROVIDERS: ATTEND Nurse Practitioner
DX: Z02.83 Encounter for blood-alcohol and blood-drug test (principal)
CPT/HCPCS: 99001

== ENCOUNTER 2019-01-30 21:27 | Emergency (ER) | payer MEDICARE ==
[2019-01-30 21:35] VITALS: BP 126/73
[2019-01-30 22:07] LABS: PLATELET COUNT, AUTOMATED 330 K/uL (150-450)
--- NOTE | 2019-01-30 22:37 | ER Report ---
History and Physical Time Seen By MD: 21:40 Hx. of Stated Complaint: PATIENT STATES SHE WOULD LIKE TO BE ADMITTED TO [facility], SHE STATES SHE HAS BEEN REALLY DEPRESSED AND STRESS OUT LATELY, FEELING SUICIDAL. HPI/ROS CHIEF COMPLAINT: Depression, suicidal ideation HISTORY OF PRESENT ILLNESS: Patient is a 58-year-old female here with complaints of depression, suicidal ideations with significant life stressors. Patient has b een having suicidal ideations without a concrete plan. Denies currently taking antidepressants. Patient reports that she is getting in the near future. Denies taking pills or drugs today. Admits to alcohol use. REVIEW OF SYSTEMS: Constitutional: No fever, no chills. Eyes: No discharge. ENT: No sore throat. Cardiovascular: No chest pain, no palpitations. Respiratory: No cough, no shortness of breath. Gastrointestinal: No abdominal pain, no vomiting. Genitourinary: No hematuria. Musculoskeletal: No back pain. Skin: No rashes. Neurological: No headache. Psych: Depression, suicidal ideations without plan, alcohol abuse Allergies: Coded Allergies: Sulfa (Sulfonamide Antibiotics) (Verified Allergy, Intermediate, FACE SWELLING, 01/31/19) Home Meds Active Scripts Potassium Chloride (KLOR-CON 10) 10 Meq Tablet.er, 10 MEQ PO QODAY, #30 TAB 3 Refills Prov:MARIA ELENA LEWIS MD 12/21/18 Fluticasone/Vilanterol (Breo Ellipta 200-25 Mcg INH) 1 Each Blst.w.dev, 1 PUFF INH QDAY, #1 INHALER 3 Refills Prov:MARIA ELENA LEWIS MD 12/21/18 Albuterol Sulfate 0.083% (ALBUTEROL SULFATE 0.083%) 2.5 Mg/3 Ml Vial.neb, 2.5 MG INH Q6H for cough, #1 BOX 1 Refill Prov:JEROME CASTILLO MD 12/17/18 Lisinopril/Hydrochlorothiazide (LISINOPRIL-HCTZ 10-12.5 MG TAB) 1 Each Tablet, 1 EACH PO QDAY, #30 TAB 3 Refills Prov:MARIA ELENA LEWIS MD 10/25/18 Albuterol Sulfate (VENTOLIN HFA) 18 Gm Inh, 2 PUFF INH Q4-6H PRN for SHORTNESS OF BREATH for 90 Days, #1 INH 4 Refills Prov:MARIA ELENA LEWIS MD 10/24/18 Fluticasone Prop 50 Mcg Ns (FLONASE 50 MCG NS) 16 Gm [place].susp, 2 SPRAYS NS QDAY, #1 BOT 2 Refills Prov:MARIA ELENA LEWIS MD 10/10/18 Atorvastatin Calcium (ATORVASTATIN CALCIUM) 20 Mg Tablet, 1 TAB PO QDAY, #30 TAB 3 Refills Prov:MARIA ELENA LEWIS MD 09/15/18 Reported Medications Thiamine Mononitrate (VITAMIN B-1) 100 Mg Tablet, 100 MG PO QDAY 01/31/19 Multivits,Ca,Minerals/Iron/FA (Thera M Plus Tablet) 1 Each Tablet, 1 TAB PO QDAY 01/31/19 Calcium Polycarbophil (FIBER LAX) 625 Mg Tablet, 2 TAB PO QDAY 08/17/18 Trazodone Hcl (TRAZODONE HCL) 100 Mg Tablet, 200 MG PO QHS, TAB 08/17/18 Discontinued Reported Medications Fluticasone/Vilanterol (Breo Ellipta 200-25 Mcg INH) 1 Each Blst.w.dev, 1 PUFF QDAY 01/31/19 Fluticasone/Vilanterol 100/25 Mcg/Inh (BREO ELLIPTA 100/25 MCG) 1 Each Aer.pow.ba, 1 INH INH QDAY, INH 01/31/19 Hx Smoking: Yes Smoking Status: Current: Every Day Smoker Exposure to Second Hand Smoke?: Yes Hx Substance Use Disorder: No Hx Alcohol Use: Yes (occasional) Constitutional Vital Sign - Last 24 Hours 01/30/19 21:35 Temp 97.7 Pulse 87 Resp 24 B/P (MAP) 126/73 Pulse Ox 90 O2 Delivery Room Air Physical Exam General Appearance: The patient is alert, has no immediate need for airway protection and no signs of toxicity. Depressed, intoxicated. Eyes: Pupils equal and round no pallor or injection. ENT, Mouth: Mucous membranes are moist. Respiratory: There are no retractions, lungs are clear to auscultation. Cardiovascular: Regular rate and rhythm. [ ] Gastrointestinal: Abdomen is soft and non tender, no masses, bowel sounds normal. Neurological: No focal neurological deficit Skin: Warm and dry, no rashes. Musculoskeletal: Neck is supple non tender. Extremities are nontender, nonswollen and have full range of motion. Psych: Admits to depression, alcohol use, suicidal ideations without plan DIFFERENTIAL DIAGNOSIS: After history and physical exam differential diagnosis was considered for depression, suicidal ideations, anxiety, significant life stressors, drug and alcohol abuse Medical Decision Making Data Points Result Diagram: 01/30/19214301/30/192143 Laboratory Hematology Test 01/30/19 21:28 01/30/19 21:44 Urine Color Yellow Urine Clarity Slightly-cloudy Urine pH 5.0 pH (4.8-9.5) Urine Specific [place] 1.016 Urine Protein Negative mg/dL (NEGATIVE) Urine Glucose (UA) Negative mg/dL (NEGATIVE) Urine Ketones Negative mg/dL (NEGATIVE) Urine Blood Negative (NEGATIVE) Urine Nitrite Positive (NEGATIVE) Urine Bilirubin Negative (NEGATIVE) Urine Urobilinogen Negative mg/dL (0.2-1.9) Urine Leukocyte Esterase Negative (NEGATIVE) Urine RBC 4 /HPF (0-2/HPF) Urine WBC 12 /HPF (0-5/HPF) Urine Squamous Epithelial Cells Many /LPF (</=FEW) Urine Bacteria Few /HPF (NONE-FEW) Urine Hyaline Casts Few /LPF (NONE-FEW) Urine Mucus Few /HPF (NONE-FEW) Urine Opiates Screen Negative Urine Barbiturates Screen Negative Ur Tricyclic Antidepressants Screen Negative Urine Phencyclidine Screen Negative Urine Amphetamines Screen Negative Urine Benzodiazepines Screen Negative Urine Cocaine Screen Negative Urine Cannabinoids Screen Negative Red Blood Count 4.16 M/uL (4.17-5.56) Mean Corpuscular Volume 102.1 fL (80.0-96.0) Mean Corpuscular Hemoglobin 36.0 pg (26.0-33.0) Mean Corpuscular Hemoglobin Concent 35.2 g/dL (32.0-36.0) Red Cell Distribution Width 12.5 % (11.5-14.5) Mean Platelet Volume 7.6 fL (7.2-11.1) Neutrophils (%) (Auto) 63.0 % (39.4-72.5) Lymphocytes (%) (Auto) 26.6 % (17.6-49.6) Monocytes (%) (Auto) 8.0 % (4.1-12.4) Eosinophils (%) (Auto) 1.7 % (0.4-6.7) Basophils (%) (Auto) 0.7 % (0.3-1.4) Nucleated RBC Relative Count (auto) 0.1 /100WBC Neutrophils # (Auto) 6.6 K/uL (2.0-7.4) Lymphocytes # (Auto) 2.8 K/uL (1.3-3.6) Monocytes # (Auto) 0.8 K/uL (0.3-1.0) Eosinophils # (Auto) 0.2 K/uL (0.0-0.5) Basophils # (Auto) 0.1 K/uL (0.0-0.1) Nucleated RBC Absolute Count (auto) 0.01 K/uL Sodium Level 147 mmol/L (137-145) Potassium Level 3.8 mmol/L (3.5-5.0) Chloride Level 112 mmol/L (98-107) Carbon Dioxide Level 26 mmol/L (22-31) Blood Urea Nitrogen 15 mg/dl (7-18) Creatinine 0.80 mg/dl (0.52-1.04) Glomerular Filtration Rate Calc > 60.0 Random Glucose 107 mg/dl (75-110) Calcium Level 9.4 mg/dl (8.4-10.2) Magnesium Level 1.7 mg/dl (1.7-2.2) Total Bilirubin 0.2 mg/dl (0.2-1.3) Aspartate Amino Transf (AST/SGOT) 26 U/L (0-35) Alanine Aminotransferase (ALT/SGPT) 40 U/L (0-56) Alkaline Phosphatase 93 U/L (0-126) Total Protein 6.2 g/dl (6.3-8.2) Albumin 3.7 g/dl (3.5-5.0) Thyroid Stimulating Hormone (TSH) 1.30 uIU/ml (0.46-4.68) Salicylates Level < 10 mg/L Salicylate Last Dose Date unknown Acetaminophen Level < 10 ug/ml Serum Alcohol 157 mg/dl Chemistry Test 01/30/19 21:28 01/30/19 21:44 Urine Color Yellow Urine Clarity Slightly-cloudy Urine pH 5.0 pH (4.8-9.5) Urine Specific [place] 1.016 Urine Protein Negative mg/dL (NEGATIVE) Urine Glucose (UA) Negative mg/dL (NEGATIVE) Urine Ketones Negative mg/dL (NEGATIVE) Urine Blood Negative (NEGATIVE) Urine Nitrite Positive (NEGATIVE) Urine Bilirubin Negative (NEGATIVE) Urine Urobilinogen Negative mg/dL (0.2-1.9) Urine Leukocyte Esterase Negative (NEGATIVE) Urine RBC 4 /HPF (0-2/HPF) Urine WBC 12 /HPF (0-5/HPF) Urine Squamous Epithelial Cells Many /LPF (</=FEW) Urine Bacteria Few /HPF (NONE-FEW) Urine Hyaline Casts Few /LPF (NONE-FEW) Urine Mucus Few /HPF (NONE-FEW) Urine Opiates Screen Negative Urine Barbiturates Screen Negative Ur Tricyclic Antidepressants Screen Negative Urine Phencyclidine Screen Negative Urine Amphetamines Screen Negative Urine Benzodiazepines Screen Negative Urine Cocaine Screen Negative Urine Cannabinoids Screen Negative White Blood Count 10.4 k/uL (4.5-11.0) Red Blood Count 4.16 M/uL (4.17-5.56) Hemoglobin 15.0 g/dL (12.0-16.0) Hematocrit 42.5 % (34.0-47.0) Mean Corpuscular Volume 102.1 fL (80.0-96.0) Mean Corpuscular Hemoglobin 36.0 pg (26.0-33.0) Mean Corpuscular Hemoglobin Concent 35.2 g/dL (32.0-36.0) Red Cell Distribution Width 12.5 % (11.5-14.5) Platelet Count 330 K/uL (150-450) Mean Platelet Volume 7.6 fL (7.2-11.1) Neutrophils (%) (Auto) 63.0 % (39.4-72.5) Lymphocytes (%) (Auto) 26.6 % (17.6-49.6) Monocytes (%) (Auto) 8.0 % (4.1-12.4) Eosinophils (%) (Auto) 1.7 % (0.4-6.7) Basophils (%) (Auto) 0.7 % (0.3-1.4) Nucleated RBC Relative Count (auto) 0.1 /100WBC Neutrophils # (Auto) 6.6 K/uL (2.0-7.4) Lymphocytes # (Auto) 2.8 K/uL (1.3-3.6) Monocytes # (Auto) 0.8 K/uL (0.3-1.0) Eosinophils # (Auto) 0.2 K/uL (0.0-0.5) Basophils # (Auto) 0.1 K/uL (0.0-0.1) Nucleated RBC Absolute Count (auto) 0.01 K/uL Glomerular Filtration Rate Calc > 60.0 Calcium Level 9.4 mg/dl (8.4-10.2) Magnesium Level 1.7 mg/dl (1.7-2.2) Total Bilirubin 0.2 mg/dl (0.2-1.3) Aspartate Amino Transf (AST/SGOT) 26 U/L (0-35) Alanine Aminotransferase (ALT/SGPT) 40 U/L (0-56) Alkaline Phosphatase 93 U/L (0-126) Total Protein 6.2 g/dl (6.3-8.2) Albumin 3.7 g/dl (3.5-5.0) Thyroid Stimulating Hormone (TSH) 1.30 uIU/ml (0.46-4.68) Salicylates Level < 10 mg/L Salicylate Last Dose Date unknown Acetaminophen Level < 10 ug/ml Serum Alcohol 157 mg/dl Toxicology Test 01/30/19 21:28 01/30/19 21:44 Urine Opiates Screen Negative Urine Barbiturates Screen Negative Ur Tricyclic Antidepressants Screen Negative Urine Phencyclidine Screen Negative Urine Amphetamines Screen Negative Urine Benzodiazepines Screen Negative Urine Cocaine Screen Negative Urine Cannabinoids Screen Negative Salicylates Level < 10 mg/L Salicylate Last Dose Date unknown Acetaminophen Level < 10 ug/ml Serum Alcohol 157 mg/dl Urinalysis Test 01/30/19 21:28 Urine Color Yellow Urine Clarity Slightly-cloudy Urine pH 5.0 pH (4.8-9.5) Urine Specific [place] 1.016 Urine Protein Negative mg/dL (NEGATIVE) Urine Glucose (UA) Negative mg/dL (NEGATIVE) Urine Ketones Negative mg/dL (NEGATIVE) Urine Blood Negative (NEGATIVE) Urine Nitrite Positive (NEGATIVE) Urine Bilirubin Negative (NEGATIVE) Urine Urobilinogen Negative mg/dL (0.2-1.9) Urine Leukocyte Esterase Negative (NEGATIVE) Urine RBC 4 /HPF (0-2/HPF) Urine WBC 12 /HPF (0-5/HPF) Urine Squamous Epithelial Cells Many /LPF (</=FEW) Urine Bacteria Few /HPF (NONE-FEW) Urine Hyaline Casts Few /LPF (NONE-FEW) Urine Mucus Few /HPF (NONE-FEW) ED Course/Re-evaluation ED Course Patient is a 58-year-old female here with complaints of depression, suicidal ideations without plan, alcohol abuse, significant life stressors. Patient was evaluated and signed in voluntarily for further psychiatric treatment. Denies drug use, admits to recent alcohol use. I discussed the patient with Dr. Haskins who accepted the patient to behavioral services. Patient was hemodynamically stable at time of admission. Decision to Disposition Date: Jan 30, 2019 Decision to Disposition Time: 22:34 Depart Departure Latest Vital Signs Vital Signs Date Time Temp Pulse Resp B/P (MAP) Pulse Ox O2 Delivery O2 Flow Rate FiO2 01/30/19 21:35 97.7 87 24 126/73 90 Room Air Impression: Primary Impression: Depression Additional Impression: Suicidal ideation Condition: Improved Disposition: XFER TO [facility] Referrals: MARIA ELENA LEWIS MD (PCP) Problem Qualifiers PALMER WILKINSON DO Jan 30, 2019 22:37
[2019-01-31] MEDS ORDERED: FLUT1AER INH (09:19)
[2019-01-31] MEDS ORDERED: FLUT1BLS3 (09:19)
[2019-01-31] MEDS ORDERED: MULT-7 PO (10:16)
[2019-01-31] MEDS ORDERED: THIA100T2 PO (10:17)
== END 2019-01-30 23:14 ==
LOC: ER 21:51
DX: F32.9 Major depressive disorder, single episode, unspecified (principal); R45.851 Suicidal ideations
CPT/HCPCS: 36415; 80305; 81001; 83735; 84443; 85025; 99284; G0480; 80320; 80329; 82040; 82247; 82310; 82374; 82435; 82565; 82947; 84075; 84132; 84155; 84295; 84450; 84460; 84520

== ENCOUNTER 2019-01-30 22:35 | Inpatient (IN) | payer MEDICARE ==
[~2019-01-30] VITALS: Ht 162.6 cm; Wt 77.1 kg
[2019-01-30] MEDS ORDERED: DIAZEPAM 10 MG TAB PO PRN (22:50)
[2019-01-30] MEDS ORDERED: MAG HYD/AL HYD/SIMETH 30ML UDC PO PRN (22:50)
[2019-01-30] MEDS ORDERED: ALBUTEROL 8 GM INHALER INH PRN (23:00)
[2019-01-30 23:20] VITALS: BP 127/63
--- NOTE | 2019-01-30 23:37 | EKG ---
FACILITY: [facility] PATIENT NAME: BRIAN ARAUJO : [id number] MR: [id number] V: [id number] EXAM DATE: ORDERING PHYSICIAN: UMESH BOLANOS TECHNOLOGIST: IHSAN Test Reason : CARDIAC HX Blood Pressure : / mmHG Vent. Rate : 075 BPM Atrial Rate : 075 BPM P-R Int : 194 ms QRS Dur : 084 ms QT Int : 398 ms P-R-T Axes : 070 -12 051 degrees QTc Int : 444 ms Sinus rhythm Left axis Low voltage QRS Septal infarct (cited on or before 23-OCT-2018) Abnormal ECG When compared with ECG of 17-DEC-2018 12:24, No significant change was found Confirmed by NICK SHOEMAKER ([id number]) on 01/31/2019 5:11:17 AM Referred By: Confirmed By:NICK SHOEMAKER
[2019-01-31] MEDS ORDERED: NICOTINE INH SYSTEM 10 MG/INH INH PRN (00:20)
[2019-01-31 05:20] VITALS: BP 136/78
[2019-01-31] MEDS ORDERED: THIAMINE HCL 100 MG TAB PO SCH (09:00)
[2019-01-31] MEDS ORDERED: MULTIVITAMINS TAB PO SCH (09:00)
[2019-01-31] MEDS ORDERED: FOLIC ACID 1 MG TAB PO SCH (09:00)
[2019-01-31] MEDS ORDERED: FLUT1AER INH (09:19)
[2019-01-31] MEDS ORDERED: FLUT1BLS3 (09:19)
[2019-01-31] MEDS ORDERED: HYDROCHLOROTHIAZIDE 25 MG TAB PO SCH (09:30)
[2019-01-31] MEDS ORDERED: POTASSIUM CHL 10 MEQ TABCR PO SCH (09:30)
[2019-01-31] MEDS ORDERED: LISINOPRIL 10 MG TAB PO SCH (09:30)
[2019-01-31] MEDS ORDERED: MULT-7 PO (10:16)
[2019-01-31] MEDS ORDERED: THIA100T2 PO (10:17)
[2019-01-31] MEDS ORDERED: CALCIUM POLYCARBOPH 625 MG TAB PO SCH (17:00)
[2019-01-31] MEDS ORDERED: traZODone HCL 50 MG TAB PO SCH (21:00)
[2019-01-31] MEDS ORDERED: ATORVASTATIN 10 MG TAB PO SCH (21:00)
[2019-02-01] MEDS ORDERED: FLUTICASONE PROP 0.05% 16 GM SCH (09:00)
--- NOTE | 2019-02-05 14:06 | SCHAAF H&P ---
DATE OF ADMISSION: January 30, 2019 DATE OF DISCHARGE: January 31, 2019 ATTENDING PHYSICIAN Danilo Haskins MD The patient was seen on the a.m. of January 31, 2019 at approximately 1000 hours for note concerning this dictation. PRESENTING PROBLEM, CHIEF COMPLAINT This is a 58-year-old female who was admitted for voicing suicidal thoughts. The patient was apparently drinking at her house where her interface control officer seen she was intoxicated. The patient told the interface control officer that she was suicidal and the patient was brought to the emergency room for evaluation and subsequently brought to the Behavioral Health Unit. During the next morning, the patient reports that her chief complaint was recently having a "mental downfall". She reports feeling overwhelmed at times and missing her family. Her and her fiance had recently bought a house and they were planning a wedding on Tuesday of the week of her admission. Further evidence suggested that the patient was using the Behavioral Health Unit as a way to escape going to [facility]. The patient eventually admitting to this stating that she figured Behavioral Health Unit had a more comfortable bed than the [facility] cell where she may have went due to her violating probation by drinking alcohol. The patient overall, however, remaining an accurate and cooperative historian. She reports her mood was an 8 out of 10 during initial interview to the good. She reported no psychosis, some abuse in the past with some mild PTSD symptoms. No self-harm issues and no other psychiatric concerns. MENTAL HEALTH HISTORY The patient reports being an [facility] [place] 6 years ago being the last or so and possibly 6 months prior as well. The patient was signed up to see a [place] counsellor Alli. However, may not have been there yet. She denied any suicide attempts, has been to AA in the past. FAMILY PSYCHIATRIC HISTORY The patient had a brother who suffered from paranoid schizophrenia. The patient reports some members of the family with alcohol dependence and multiple members that are using various substances as well. She reported no suicides in the family. PAST MEDICAL HISTORY The patient on lisinopril for hypertension. She has COPD. She is also taking a statin medication as well as potassium. She has an allergy Sulfa medications. SOCIAL HISTORY The patient was born in [place] and raised there. Her parents were at the time of her . They when she was around age 4. The patient had 3 sisters, 2 brothers. 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 The patient was x2. She has children, 3 grown and 12 grandchildren. She lives with her fiance of 5 years. She is not working. She gets social security disability for back pain as well as mental health issues. LEGAL HISTORY She is believed to have multiple DUIs and is currently on probation. She has recently violated this by drinking. SUBSTANCE ABUSE HISTORY The patient reports she has never done drugs. She is a 1 pack a day cigarettes smoker and she continues to use alcohol heavily at times having a recent relapse preceding this admission. ASSESSMENT This is a polite, cooperative 58-year-old female that in the space of intoxication and the stressors associated with legal consequences of such, indicated to her interface control officer that she was suicidal. The patient now agreeing this was not the case and she is happy to get in a couple of days from now. The patient was admitted without incident, discharged quickly. The patient did agree to go directly to probation office upon discharge to discuss any probation revocation. The patient's fiance had no reservations about the patient's discharge. He is present at time of her discharge. Alcohol withdrawal was not believed to be considered relevant. The patient did not want to remain on the unit. The patient discharged home. DIAGNOSES 1. Alcohol use disorder, [id number]. 2. Social and legal stressors. 3. Supportive relationship with fiance. PLAN The patient would discharge and go directly to see her interface control officer. He has been contacted. Appointment set up. Discharged in the care of her fiance who would take her there. The patient would continue her current home meds. She would abstain from all alcohol. Follow up at [facility] with Alli Flanagan and other psych providers. Crisis Line was given should symptoms return. MEDICATIONS AT TIME OF DISCHARGE 1. Trazodone 200 mg at night. 2. FiberCon 625 mg at breakfast and supper. 3. Flonase as needed. 4. Folic acid 1 mg over the counter. 5. Hydrochlorothiazide 12.5 mg daily. 6. Lipitor 20 mg at bedtime. 7. Micro-potassium 10 mEq daily. 8. Prinivil 10 mg daily. 9. Multivitamin with minerals daily. 10. Vitamin B, Thiamin 100 mg daily. 11. Ventolin inhaler, patient can continue as needed. No scripts were given. The patient had these medications at home. The Crisis Line was given should symptoms return. Risk, benefits, and alternative of the above discharge plan were discussed. Informed consent was given to proceed with the above discharge plan by this patient and patient's fiance present at time of discharge. LÁZARO
== END 2019-01-31 11:48 | disposition home or self-care (01) | DRG 897 ==
LOC: BHS 22:35
PROVIDERS: ADMIT Psychiatry & Neurology Psychiatry; ATTEND Psychiatry & Neurology Psychiatry
DX: F10.220 Alcohol dependence with intoxication, uncomplicated (principal); F43.12 Post-traumatic stress disorder, chronic; I10 Essential (primary) hypertension; Z88.2 Allergy status to sulfonamides; Z65.3 Problems related to other legal circumstances; J44.9 Chronic obstructive pulmonary disease, unspecified; Y90.6 Blood alcohol level of 120-199 mg/100 ml; Z81.1 Family history of alcohol abuse and dependence; Z81.8 Family history of other mental and behavioral disorders; Z81.3 Family history of other psychoactive substance abuse and dependence
CPT/HCPCS: 81001; 87077; 87088; 87186; 93005

== ENCOUNTER 2019-02-15 23:54 | Emergency (ER) | payer MEDICARE ==
[2019-02-16] MEDS ORDERED: THIAMINE HCL(*) 200 MG/2 ML IN 100 MG, FOLIC ACID(*) 50 MG/10 ML INJ 1 MG, MULTIVITAMIN... IV ONE (00:04)
--- NOTE | 2019-02-16 00:04 | ER Report ---
History and Physical Time Seen By MD: 23:58 HPI/ROS CHIEF COMPLAINT: Alcohol intoxication, fall HISTORY OF PRESENT ILLNESS: 58-year-old female brought in by EMS after a ground- level fall face 1st. Patient appears grossly on-call intoxicated. She admits to at least 5 drinks tonight. He should complaining of a headache. He was brought in by EMS in a cervical collar. REVIEW OF SYSTEMS: Respiratory: No cough, no dyspnea. Cardiovascular: No chest pain, no palpitations. Gastrointestinal: No vomiting, no abdominal pain. Musculoskeletal: No back pain. Allergies: Coded Allergies: Sulfa (Sulfonamide Antibiotics) (Verified Allergy, Intermediate, FACE SWELLING, 01/31/19) Home Meds Active Scripts Potassium Chloride (KLOR-CON 10) 10 Meq Tablet.er, 10 MEQ PO QODAY, #30 TAB 3 Refills Prov:MARIA ELENA LEWIS MD 12/21/18 Fluticasone/Vilanterol (Breo Ellipta 200-25 Mcg INH) 1 Each Blst.w.dev, 1 PUFF INH QDAY, #1 INHALER 3 Refills Prov:MARIA ELENA LEWIS MD 12/21/18 Albuterol Sulfate 0.083% (ALBUTEROL SULFATE 0.083%) 2.5 Mg/3 Ml Vial.neb, 2.5 MG INH Q6H for cough, #1 BOX 1 Refill Prov:JEROME CASTILLO MD 12/17/18 Lisinopril/Hydrochlorothiazide (LISINOPRIL-HCTZ 10-12.5 MG TAB) 1 Each Tablet, 1 EACH PO QDAY, #30 TAB 3 Refills Prov:MARIA ELENA LEWIS MD 10/25/18 Albuterol Sulfate (VENTOLIN HFA) 18 Gm Inh, 2 PUFF INH Q4-6H PRN for SHORTNESS OF BREATH for 90 Days, #1 INH 4 Refills Prov:MARIA ELENA LEWIS MD 10/24/18 Fluticasone Prop 50 Mcg Ns (FLONASE 50 MCG NS) 16 Gm [place].susp, 2 SPRAYS NS QDAY, #1 BOT 2 Refills Prov:MARIA ELENA LEWIS MD 10/10/18 Atorvastatin Calcium (ATORVASTATIN CALCIUM) 20 Mg Tablet, 1 TAB PO QDAY, #30 TAB 3 Refills Prov:MARIA ELENA LEWIS MD 09/15/18 Reported Medications Thiamine Mononitrate (VITAMIN B-1) 100 Mg Tablet, 100 MG PO QDAY 01/31/19 Multivits,Ca,Minerals/Iron/FA (Thera M Plus Tablet) 1 Each Tablet, 1 TAB PO QDAY 01/31/19 Calcium Polycarbophil (FIBER LAX) 625 Mg Tablet, 2 TAB PO QDAY 08/17/18 Trazodone Hcl (TRAZODONE HCL) 100 Mg Tablet, 200 MG PO QHS, TAB 08/17/18 Reviewed Nurses Notes: Yes Old Medical Records Reviewed: Yes Hx Smoking: Yes Smoking Status: Current: Every Day Smoker Exposure to Second Hand Smoke?: Yes Hx Substance Use Disorder: No Hx Alcohol Use: Yes (occasional) Constitutional Vital Sign - Last 24 Hours 02/16/19 02/16/19 02/16/19 02/16/19 00:00 00:05 00:30 01:00 Temp 97.7 Pulse 69 76 81 Resp 18 B/P (MAP) 89/62 99/58 (72) 90/62 (71) Pulse Ox 94 O2 Delivery Nasal Cannula O2 Flow Rate 3.0 Intake and Output 02/15/19 02/15/19 02/16/19 15:03 23:03 07:03 Intake Total 600 ml Balance 600 ml Physical Exam Vital signs stable, mild hypotension, slurred speech and heavy odor of EtOH patient is agitated and confrontational. There is a hematoma to the left side of the forehead with a small laceration General Appearance: The patient is alert, has no immediate need for airway protection and no current signs of toxicity. HEENT: Pupils equal and round no injection. PERRLA, EOMI, no dental trauma, TMs normal Respiratory: Chest is non tender, lungs are clear to auscultation. No chest wall tenderness Cardiac: regular rate and rhythm Gastrointestinal: Abdomen is soft and non tender, no masses, bowel sounds normal. Musculoskeletal: Neck: Neck is supple and non tender. Extremities have full range of motion and are non tender. Skin: No rashes or lesions. DIFFERENTIAL DIAGNOSIS: After history and physical exam differential diagnosis was considered for head injury including but not limited to concussion, skull fracture, intraparenchymal contusion, subarachnoid, subdural and epidural hematoma. A call intoxication Medical Decision Making Data Points Result Diagram: 02/16/19 0001 02/16/19 0001 Laboratory Hematology Test 02/16/19 00:01 White Blood Count 12.9 k/uL (4.5-11.0) H Red Blood Count 3.98 M/uL (4.17-5.56) L Hemoglobin 14.0 g/dL (12.0-16.0) Hematocrit 40.8 % (34.0-47.0) Mean Corpuscular Volume 102.4 fL (80.0-96.0) H Mean Corpuscular Hemoglobin 35.1 pg (26.0-33.0) H Mean Corpuscular Hemoglobin Concent 34.2 g/dL (32.0-36.0) Red Cell Distribution Width 12.3 % (11.5-14.5) Platelet Count 394 K/uL (150-450) Mean Platelet Volume 7.7 fL (7.2-11.1) Neutrophils (%) (Auto) 66.0 % (39.4-72.5) Lymphocytes (%) (Auto) 23.5 % (17.6-49.6) Monocytes (%) (Auto) 7.4 % (4.1-12.4) Eosinophils (%) (Auto) 1.4 % (0.4-6.7) Basophils (%) (Auto) 1.7 % (0.3-1.4) H Nucleated RBC Relative Count (auto) 0.0 /100WBC Neutrophils # (Auto) 8.5 K/uL (2.0-7.4) H Lymphocytes # (Auto) 3.0 K/uL (1.3-3.6) Monocytes # (Auto) 1.0 K/uL (0.3-1.0) Eosinophils # (Auto) 0.2 K/uL (0.0-0.5) Basophils # (Auto) 0.2 K/uL (0.0-0.1) H Nucleated RBC Absolute Count (auto) 0.01 K/uL Peripheral Blood Smear Yes Y/N Chemistry Test 02/16/19 00:01 Sodium Level 137 mmol/L (137-145) Potassium Level 3.1 mmol/L (3.5-5.0) Chloride Level 103 mmol/L (98-107) Carbon Dioxide Level 20 mmol/L (22-31) Blood Urea Nitrogen 27 mg/dl (7-18) Creatinine 1.10 mg/dl (0.52-1.04) Glomerular Filtration Rate Calc 50.8 Random Glucose 119 mg/dl (75-110) Lactate 2.0 mmol/L (0.7-2.1) Calcium Level 9.6 mg/dl (8.4-10.2) Total Bilirubin 0.3 mg/dl (0.2-1.3) Aspartate Amino Transf (AST/SGOT) 37 U/L (0-35) Alanine Aminotransferase (ALT/SGPT) 52 U/L (0-56) Alkaline Phosphatase 69 U/L (0-126) Total Protein 5.7 g/dl (6.3-8.2) Albumin 3.5 g/dl (3.5-5.0) Amylase Level 50 U/L (0-110) Lipase 182 U/L (23-300) Coagulation Test 02/16/19 00:01 Prothrombin Time 13.5 seconds (12.0-14.4) Prothromb Time International Ratio 1.03 Activated Partial Thromboplast Time 34 seconds (23-35) Toxicology Test 02/16/19 00:01 Serum Alcohol 190 mg/dl EKG/Imaging Imaging Results: CT scan of the head and cervical spine without contrast was obtained. The results of the study are no acute traumatic findings, see radiology reports. The study was read by the radiologist. I viewed the images myself on the PACS system. ED Course/Re-evaluation Clinical Indication for ER IV: Hydration, IV Access ED Course Patient was admitted to an examination room. H&P was done. The differential diagnoses was considered. Patient was quite agitated and uncooperative. She demanded that cervical collar be removed. She claimed her neck was okay. She has distracting injury, and gross alcohol intoxication. She continued to report that the collar until it was removed. Is moving her neck all around. She is yelling and screaming. She is very confrontational. Patient is agreeable to cooperating and holding still for a CAT scan of her head and neck. Patient was treated with an IV banana bag. CAT scan of the head and neck were performed. Her blood alcohol returned only 190. Fortunately patient's CAT scans were negative of her head and her neck. He was discharged home with head injury precautions. She was given a tetanus booster. Decision to Disposition Date: Feb 16, 2019 Decision to Disposition Time: 01:10 Depart Departure Latest Vital Signs Vital Signs Date Time Temp Pulse Resp B/P (MAP) Pulse Ox O2 Delivery O2 Flow Rate FiO2 02/16/19 01:00 81 90/62 (71) 02/16/19 00:05 3.0 02/16/19 00:00 97.7 18 94 Nasal Cannula Impression: Primary Impression: Head injury Additional Impressions: Alcohol intoxication Forehead contusion Forehead abrasion Contusion of right elbow Condition: Improved Disposition: HOME OR SELF-CARE Referrals: MARIA ELENA LEWIS MD (PCP) Patient Instructions: Alcohol Intoxication (ED), Head Injury (ED) Additional Instructions: Use Tylenol and ibuprofen as needed for pain relief Apply ice packs to your left forehead Problem Qualifiers Primary Impression: Head injury Encounter type: initial encounter Qualified Codes: S09.90XA - Unspecified injury of head, initial encounter Additional Impressions: Alcohol intoxication Complication of substance-induced condition: uncomplicated Qualified Codes: F10.920 - Alcohol use, unspecified with intoxication, uncomplicated Forehead contusion Encounter type: initial encounter Qualified Codes: S00.83XA - Contusion of other part of head, initial encounter Forehead abrasion Encounter type: initial encounter Qualified Codes: S00.81XA - Abrasion of other part of head, initial encounter Contusion of right elbow Encounter type: initial encounter Qualified Codes: S50.01XA - Contusion of right elbow, initial encounter DILLAN HURST DO Feb 16, 2019 00:04
[2019-02-16] MEDS ORDERED: DIPHTH/TETANUS/ACEL. PERTUSSIS IM ONE (00:05)
[2019-02-16 00:16] LABS: PLATELET COUNT, AUTOMATED 394 K/uL (150-450)
[2019-02-16 00:37] LABS: INR 1.03
[2019-02-16 01:00] VITALS: BP 90/62
--- NOTE | 2019-02-16 01:03 | RADIOLOGY IMAGING REPORT ---
FACILITY: [facility] PATIENT NAME: Sweta Green : 1960 MR: [id number] V: [id number] EXAM DATE: ORDERING PHYSICIAN: DILLAN HURST TECHNOLOGIST: Location: [facility] Patient: Sweta Green : 1960 Visit/Account:[id number] Date of Sevice: 02/16/2019 CT BRAIN NO CONTRAST HISTORY: Fell off a barstool. Left frontal laceration. COMPARISON: 12/17/2018 and 06/19/2015. CT cervical spine was performed at the same time as the current examination. TECHNIQUE: Axial images were obtained from the skull base to the vertex without contrast. Sagittal an d coronal reformats were performed. One of the following dose optimization techniques was utilized in the performance of this exam: Autom ated exposure control; adjustment of the mA and/or kV according to the patient's size; or use of an i terative reconstruction technique. Specific details can be referenced in the facility's radiology CT exam operational policy. CONTRAST: None. FINDINGS: BRAIN: No intracranial hemorrhage, mass, or edema. SULCI, VENTRICLES, AND CISTERNS: Sulci are normal. The ventricles are normal in size and configuratio n. The basilar cisterns are patent. OSSEOUS STRUCTURES: Intact. Mesh is present in the inferior left orbit from prior repair. PARANASAL SINUSES AND MASTOIDS: There is a mucous retention pseudocyst in a posterior left ethmoid ai r cell. There is mild mucosal thickening of the ethmoid sinuses. Rightward nasal septal deviation. Pr ior right mastoid surgery. Mastoids are clear. ORBITS AND SOFT TISSUES: There are a laceration and small hematoma of the left frontoparietal scalp. There are calcifications in the subcutaneous fat of the right cheek (image 10 series 2), and of the r ight forehead (image 40), unchanged. IMPRESSION: 1. Left scalp laceration and hematoma, but no acute intracranial abnormality. 2. Paranasal sinus disease. Report Dictated By: Kathie Linton at 02/16/2019 12:50 AM Report E-Signed By: Kathie Linton at 02/16/2019 12:56 AM WSN:[id number]
--- NOTE | 2019-02-16 01:07 | RADIOLOGY IMAGING REPORT ---
FACILITY: [facility] PATIENT NAME: Sweta Green : 1960 MR: [id number] V: [id number] EXAM DATE: ORDERING PHYSICIAN: DILLAN HURST TECHNOLOGIST: Location: [facility] Patient: Sweta Green : 1960 Visit/Account:[id number] Date of Sevice: 02/16/2019 CT VERTEBRA CERVICAL (NON CON) HISTORY: Fell off a barstool. Frontal laceration. COMPARISON: No prior CT cervical spine. CT brain was performed at the same time as the current examin [facility]. TECHNIQUE: Axial images were obtained from the skull base through the upper thoracic spine. Coronal a nd sagittal reformatted images were obtained from the axial source data. One of the following dose optimization techniques was utilized in the performance of this exam: Autom ated exposure control; adjustment of the mA and/or kV according to the patient's size; or use of an i terative reconstruction technique. Specific details can be referenced in the facility's radiology CT exam operational policy. CONTRAST: None. FINDINGS: MUSCULOSKELETAL/VERTEBRA: No acute osseous abnormality. Vertebral body heights are maintained. There is straightening of the normal cervical lordosis. There is mild multilevel degenerative change of the spine. Disc osteophyte complexes cause mild narrowing of the spinal canal at C5-6 and C6-7. Preverte bral soft tissues are within normal limits. VISUALIZED UPPER CHEST: Normal. SOFT TISSUES: There is mild calcified atherosclerosis at the carotid bifurcations and of the right taylor bclavian artery origin. There are coarse calcifications within the inferior left lobe of the thyroid. No discrete thyroid lesion. IMPRESSION: 1. Degenerative changes, but no acute osseous abnormality of the cervical spine. 2. Mild narrowing of the spinal canal at C5-6 and C6-7 secondary to degenerative changes. Report Dictated By: Kathie Linton at 02/16/2019 12:56 AM Report E-Signed By: Kathie Linton at 02/16/2019 1:00 AM WSN:[id number]
[2019-02-16] MEDS ORDERED: ACETAMINOPHEN 325 MG TAB PO ONE (01:20)
== END 2019-02-16 01:24 | disposition home or self-care (01) ==
LOC: ER 02-16
DX: S09.90XA Unspecified injury of head, initial encounter (principal); F10.920 Alcohol use, unspecified with intoxication, uncomplicated; S00.83XA Contusion of other part of head, initial encounter; S00.81XA Abrasion of other part of head, initial encounter; S50.01XA Contusion of right elbow, initial encounter
CPT/HCPCS: 70450; 72125; 82150; 83605; 83690; 85025; 85610; 85730; 90471; 90715; 96365; 99284; A9270; G0480; J3411; J3475; J7030; 80320; 82040; 82247; 82310; 82374; 82435; 82565; 82947; 84075; 84132; 84155; 84295; 84450; 84460; 84520

== ENCOUNTER → 2019-02-15 | Outpatient (CLI) | payer MEDICARE ==
[~2019-02-15] MED LIST changes: +FLUT1AER INH; +FLUT1BLS3; +MULT-7 PO; +THIA100T2 PO
== END ==
LOC: AMB 23:30
PROVIDERS: ATTEND Nurse Practitioner
DX: R55 Syncope and collapse (principal)
CPT/HCPCS: A0425; A0427